=== PATIENT | male | born 1950 | race Caucasian/White ===

== ENCOUNTER 2017-04-27 13:46 | Emergency (ER) | payer MEDICARE, OTHER ==
[~2017-04-27 13:46] MED LIST: ASPI-1471 PO; ASPI-715 PO; AZIT600T13 PO; CEPH500T7 PO; CHOL10005 PO; CLA500 PO; ESCI20TA38 PO; HCTZ25 PO; LISI-355 PO; OXYGENHOME INH; PRE10 PO; SIM10 PO; TIO18R IH; TIO18R INH
--- NOTE | 2017-04-27 13:53 | ER Report ---
History and Physical Time Seen By MD: 13:53 HPI/ROS CHIEF COMPLAINT: Laceration HISTORY OF PRESENT ILLNESS: 66-year-old male patient presents to emergency room with complaint of laceration to the left thumb. Patient states that he was using a box liner has slipped any cut his thumb. Patient denies any numbness or tingling. He denies any weakness in thumb. Patient states that he has got a tetanus shot within the past year. He did apply pressure to the wound and came into the emergency room. Patient is also planning on traveling starting tomorrow as concerned about traveling. REVIEW OF SYSTEMS: Respiratory: No cough, no dyspnea. Cardiovascular: No chest pain, no palpitations. Gastrointestinal: No vomiting, no abdominal pain. Musculoskeletal: No back pain. Allergies: Coded Allergies: camphor (Verified Allergy, Severe, ANAPHYLAXIS, 04/27/17) peppermint (Verified Allergy, Severe, ANAPHYLAXIS, 04/27/17) Home Meds Active Scripts Cephalexin 500 Mg Tab (KEFLEX 500 MG TAB) 500 Mg Tablet, 500 MG PO Q6H, #28 TAB Prov:ADAM HARRIS [employer] 04/27/17 Cephalexin 500 Mg Tab (KEFLEX 500 MG TAB) 500 Mg Tablet, 500 MG PO Q6H, #20 TAB Prov:ADAM HARRIS [facility] 09/14/16 Reported Medications Umeclidinium Brm/Vilanterol Tr (Anoro Ellipta 62.5-25 Mcg INH) 1 Each Disk.w.dev 04/27/17 Aspirin (ASPIR 81) 81 Mg Tablet.dr, 325 MG PO QDAY, TAB 06/18/16 Lisinopril/Hydrochlorothiazide (LISINOPRIL-HCTZ 20-25 MG TAB) 1 Each Tablet, 1 EACH PO QDAY 05/12/16 Cholecalciferol (Vitamin D3) (VITAMIN D3) 1,000 Unit Tablet, 2000 UNIT PO QDAY, TAB 05/12/16 Oxygen (OXYGEN) Inha, 2 L INH HS, L 05/12/16 Escitalopram Oxalate (Lexapro) 20 Mg Tablet, 20 MG PO QDAY, 0 Refills 03/13/10 Simvastatin (Zocor) 10 Mg Tab, 40 MG PO QHS, 0 Refills 03/13/10 Discontinued Reported Medications Tiotropium [place] (SPIRIVA) 18 Mcg/Cap Inh, 18 MCG INH QAM, INH 06/18/16 Past Medical/Surgical History Patient has a past medical history of migraines, hypertension, hyperlipidemia, oxygen, emphysema, COPD, osteopenia, dry skin, alcohol abuse, drug abuse, PTSD, depression. Patient has surgical history of finger surgery, no surgery, colonoscopy. Reviewed Nurses Notes: Yes Hx Smoking: Yes (50+ yrs 12-15 cigs daily) Smoking Status: Current: Every Day Smoker Hx Substance Use Disorder: Yes (RECOVERING ALCOHOLIC, PAST DRUG USE) Hx Alcohol Use: No (IN THE PAST) Constitutional Vital Sign - Last 24 Hours 04/27/17 04/27/17 13:54 15:12 Temp 98.5 Pulse 67 59 Resp 20 B/P (MAP) 122/63 116/71 (86) Pulse Ox 96 95 O2 Delivery Room Air Room Air Physical Exam General Appearance: The patient is alert, has no immediate need for airway protection and no current signs of toxicity. Respiratory: Chest is non tender, lungs are clear to auscultation. Cardiac: regular rate and rhythm Musculoskeletal: Extremities have full range of motion and are non tender. Patient has good strength with flexion extension of the left thumb, wound was evaluated there is no tendon or ligamentous injury. Skin: No rashes or lesions. Laceration to lateral aspect of left thumb, does go into the subcutaneous tissue. DIFFERENTIAL DIAGNOSIS: After history and physical exam differential diagnosis was considered for laceration. Medical Decision Making ED Course/Re-evaluation ED Course Patient was admitted on exam room, history and physical were obtained. Differential diagnoses were considered. Wound was evaluated, does go into the scalp cutaneous tissue. There is no obvious tendon or ligamentous injury. Patient had good strength with extension and flexion. The thumb was anesthetized , cleaned and repaired described below. We will go ahead and discharge patient home at this time. He is to follow-up in 7-10 days to have sutures removed. With him traveling he may do that on the cruise ship. I would like and keep it covered for the next several days. He is to monitor for any signs of infection. I discussed this with the patient and his and they verbalized understanding and agreement. We will go ahead and put him on antibiotics to prevent infection. Procedure: Laceration repair. Verbal consent was obtained from the patient. The 5 cm laceration on the lateral aspect of the left thumb was anesthetized in the usual fashion. The wound was scrubbed, draped and explored to its base with a gloved finger. There were no deep structures involved. No tendon injury was identified. The wound was repaired with 11 simple interrupted sutures using 5-0 Prolene material. The wound repair was simple. The procedure was performed by myself. Decision to Disposition Date: Apr 27, 2017 Decision to Disposition Time: 14:55 Depart Departure Latest Vital Signs Vital Signs Date Time Temp Pulse Resp B/P (MAP) Pulse Ox O2 Delivery O2 Flow Rate FiO2 04/27/17 15:12 59 116/71 (86) 95 Room Air 04/27/17 13:54 98.5 20 Impression: Primary Impression: Thumb laceration Condition: Improved Disposition: HOME OR SELF-CARE Referrals: MERVAT DAVENPORT (PCP) New Scripts Cephalexin 500 Mg Tab (KEFLEX 500 MG TAB) 500 Mg Tablet 500 MG PO Q6H, #28 TAB Prov: ADAM HARRIS 04/27/17 Patient Instructions: Finger Laceration (ED) Additional Instructions: Keep wound dry for 48 hours. Follow up with your primary care provider in the next 7-10 days to have sutures removed. Monitor for signs of infection; redness, swelling, heat, discharge, increasing pain or red streaking. Take Tylenol or Ibuprofen as needed for pain. Return to the ER with any concerns. You may change dressing as needed. Problem Qualifiers Primary Impression: Thumb laceration Encounter type: initial encounter Damage to nail status: without damage Foreign body presence: without foreign body Laterality: left Qualified Codes : S61.012A - Laceration without foreign body of left thumb without damage to nail, initial encounter ADAM HARRIS Apr 27, 2017 13:53
[2017-04-27] MEDS ORDERED: UMEC1DIS (14:00)
[2017-04-27] MEDS ORDERED: CEPH500T7 PO (14:55)
[2017-04-27 15:12] VITALS: BP 116/71
== END 2017-04-27 15:10 | disposition home or self-care (01) ==
LOC: ER 14:12
DX: S61.012A Laceration without foreign body of left thumb without damage to nail, initial encounter (principal)
CPT/HCPCS: 99283

== ENCOUNTER → 2018-09-05 | Outpatient (CLI) | payer MEDICARE, OTHER ==
[~2018-09-05] MED LIST changes: +UMEC1DIS
--- NOTE | 2018-09-05 10:41 | EKG ---
[place] [facility] [place] NAME: PEPPER CALDERON : [id number] MR: [id number] V: [id number] EXAM DATE: ORDERING PHYSICIAN: MERVAT DAVENPORT TECHNOLOGIST: PATRICE Test Reason : CHECK UP Blood Pressure : / mmHG Vent. Rate : 058 BPM Atrial Rate : 058 BPM P-R Int : 152 ms QRS Dur : 086 ms QT Int : 416 ms P-R-T Axes : 051 089 069 degrees QTc Int : 408 ms Sinus bradycardia Otherwise normal ECG No previous ECGs available Confirmed by SARITA NOVA ([id number]) on 09/05/2018 4:50:07 PM Referred By: [facility] Confirmed By:SARITA NOVA
== END ==
LOC: RESP 10:25
PROVIDERS: ATTEND Nurse Practitioner Family
DX: R00.1 Bradycardia, unspecified (principal)
CPT/HCPCS: 93005

== ENCOUNTER → 2018-09-06 | Outpatient (CLI) | payer MEDICARE, OTHER | LOC: RESP 01:15 | PROVIDERS: ATTEND Nurse Practitioner Family | DX: J44.9 Chronic obstructive pulmonary disease, unspecified (principal); I27.20 Pulmonary hypertension, unspecified | CPT/HCPCS: 94060; 94726; 94729 ==